=== PATIENT | female | born 1990 | race Caucasian/White ===

== ENCOUNTER 2023-11-19 15:19 | Emergency (ER) | payer OTHER ==
[~2023-11-19] VITALS: Ht 160 cm; Wt 152.0 kg
[2023-11-19 15:22] VITALS: O2SAT 98
[2023-11-19 18:05] VITALS: BP 118/70; PULSE 81; RESP 15; TEMP 98.3
== END 2023-11-19 18:05 | disposition home or self-care (01) ==
LOC: ER 15:19
DX: M79.605 Pain in left leg (principal); M79.604 Pain in right leg; E11.9 Type 2 diabetes mellitus without complications; Z98.890 Other specified postprocedural states
CPT/HCPCS: 93970; 99284